=== PATIENT | female | born 1960 | race Caucasian/White ===

== ENCOUNTER 2017-03-29 03:53 | Outpatient (CLI) | payer BC | END 2017-03-29 23:59 | disposition home or self-care (01) | LOC: DIABETIC 03:53 | PROVIDERS: ATTEND Specialist | DX: E11.65 Type 2 diabetes mellitus with hyperglycemia (principal) | CPT/HCPCS: G0108 ==

== ENCOUNTER 2017-06-27 04:44 | Outpatient (CLI) | payer BC | END 2017-06-27 23:59 | disposition home or self-care (01) | LOC: DIABETIC 04:44 | PROVIDERS: ATTEND Specialist | DX: E11.65 Type 2 diabetes mellitus with hyperglycemia (principal) | CPT/HCPCS: G0108 ==